=== PATIENT | female | born 1990 | race Two or more races ===

== ENCOUNTER 2023-03-13 16:24 | Emergency (ER) | payer OTHER ==
[~2023-03-13] VITALS: Ht 162.6 cm; Wt 120.2 kg
[2023-03-13] MEDS ORDERED: FOLIC ACID20 MG (16:32)
[2023-03-13] MEDS ORDERED: PRENATAL + DHA1 EAC1 (16:32)
== END 2023-03-13 19:55 | disposition home or self-care (01) ==
LOC: ER 16:24
DX: O03.6 Delayed or excessive hemorrhage following complete or unspecified spontaneous abortion (principal); R10.2 Pelvic and perineal pain